=== PATIENT | female | born 1970 | race Caucasian/White ===

== ENCOUNTER 2016-11-16 07:15 | Emergency (ER) | payer BC ==
[2016-11-16 07:38] VITALS: BP 128/58
--- NOTE | 2016-11-16 07:42 | UC ---
Respiratory Complaint HPI - HPI Summary HPI Summary: SINUS PRESSURE AND PAIN FOR 5 DAYS. THIS MORNING WOKE WITH CHEST CONGESTION AND MUCUS IN HER THROAT. COUGH IS PRODUCTIVE. HAS A HEADACHE. NO FEVER, CHILLS OR BODY ACHES. Sinus pain actually feels much better and felt fine last night and made appt to see ict trainer this morning. mucous and cough started suddenly this morning. had same cough and resolved without abx. when she does get this in the past she has had good success with alb inhaler and usualy doesnt need abx. no sinu carlos. no asthma, not a smoker. - History of Current Complaint Chief Complaint: UCRespiratory Stated Complaint: CHEST CONGESTION Time Seen by Provider: 11/16/16 07:20 Hx Last Menstrual Period: 10/26/16 - Allergies/Home Medications Allergies/Adverse Reactions: Allergies Allergy/AdvReac Type Severity Reaction Status Date / Time No Known Allergies Allergy Verified 11/16/16 07:21 Home Medications: Home Medications Lactobacillus [Probiotic] 1 cap PO DAILY 11/16/16 [History Confirmed 11/16/16] Vit-D 5,000 units PO DAILY 11/16/16 [History] PMH/Surg Hx/FS Hx/Imm Hx Previously Healthy: Yes - Surgical History Surgical History: Yes Surgery Procedure, Year, and Place: R rotator cuff 04/30, gallbladder, T & A, UTERINE ablation - Family History Known Family History: Positive: Hypertension, Other - Social History Alcohol Use: Rare Substance Use Type: None Smoking Status (MU): Former Smoker Amount Used/How Often: 2 PPD Have You Smoked in the Last Year: No When Did the Patient Quit Smoking/Using Tobacco: 22 YEARS - Immunization History Most Recent Influenza Vaccination: NOT IN Review of Systems Constitutional: Negative Skin: Negative Eyes: Negative ENT: Negative, Other - sinus pain resolved Respiratory: Cough - mild wheezing Cardiovascular: Negative Gastrointestinal: Negative Genitourinary: Negative Motor: Negative Neurovascular: Negative Musculoskeletal: Negative Neurological: Negative Psychological: Negative All Other Systems Reviewed And Are Negative: Yes Physical Exam Triage Information Reviewed: Yes Appearance: Well-Appearing, No Pain Distress, Well-Nourished - mild cough, very pleasant Vital Signs: Initial Vital Signs Temp 98.1 F 11/16/16 07:23 Pulse 71 11/16/16 07:23 Resp 20 11/16/16 07:23 BP 128/58 11/16/16 07:23 Pulse Ox 97 11/16/16 07:23 Vital Signs Reviewed: Yes Eye Exam: Normal ENT: Positive: TMs normal. Negative: Pharyngeal erythema - + PND, no sinus tenderness, Tonsillar swelling, Tonsillar exudate, Muffled/hoarse voice Dental Exam: Normal Neck exam: Normal Neck: Positive: Supple, Nontender, No Lymphadenopathy Respiratory: Positive: Chest non-tender, Lungs clear, No respiratory distress, No accessory muscle use, Decreased breath sounds - mild. Negative: Crackles, Rhonchi, Stridor, Wheezing Cardiovascular Exam: Normal Cardiovascular: Positive: RRR, No Murmur, Pulses Normal, Brisk Capillary Refill Abdominal Exam: Normal Abdomen Description: Positive: Nontender, Soft Musculoskeletal Exam: Normal Neurological Exam: Normal Psychological Exam: Normal Skin Exam: Normal UC Diagnostic Evaluation - Laboratory O2 Sat by Pulse Oximetry: 97 Respiratory Course/Dx - Differential Dx/Diagnosis Differential Diagnosis/HQI/PQRI: Asthma, Bronchitis, Laryngitis, Sinusitis Provider Diagnoses: mild bronchitis Discharge - Discharge Plan Condition: Stable Disposition: HOME Prescriptions: Albuterol HFA INHALER* [Ventolin HFA Inhaler*] 2 puff INH Q4H PRN #1 mdi PRN Reason: Cough Patient Education Materials: Acute Bronchitis (ED) Referrals: Claudia Valdes MD [Primary Care Provider] - 3 Days Additional Instructions: Increase fluids and rest. OTC mucinex.
== END 2016-11-16 07:56 | disposition home or self-care (01) ==
LOC: UCCORT 07:15
DX: J40 Bronchitis, not specified as acute or chronic (principal); Z87.891 Personal history of nicotine dependence
CPT/HCPCS: 99212; G0463